=== PATIENT | male | born 1960 | race African-American/Black ===

== ENCOUNTER 2016-11-28 11:18 | Emergency (ER) | payer MEDICAID ==
[~2016-11-28] VITALS: Ht 172.7 cm; Wt 66.0 kg
[~2016-11-28 11:18] MED LIST: OLAN10TA3 PO; TRAZ-132 PO; TRAZODONE; TRIZ; ZYPREXA
[2016-11-28 11:36] VITALS: BP 102/64
== END 2016-11-28 15:17 | disposition left against medical advice (07) ==
LOC: ER 15:05
DX: J34.89 Other specified disorders of nose and nasal sinuses (principal); Z53.21 Procedure and treatment not carried out due to patient leaving prior to being seen by health care provider; J45.909 Unspecified asthma, uncomplicated; F31.9 Bipolar disorder, unspecified; Z90.49 Acquired absence of other specified parts of digestive tract

== ENCOUNTER 2016-12-28 18:59 | Emergency (ER) | payer MEDICAID ==
[~2016-12-28] VITALS: Ht 172.7 cm; Wt 66.0 kg
[2016-12-28 19:32] VITALS: BP 116/69
== END 2016-12-28 20:29 | disposition left against medical advice (07) ==
LOC: ER 18:59
DX: R45.851 Suicidal ideations (principal); Z53.21 Procedure and treatment not carried out due to patient leaving prior to being seen by health care provider

== ENCOUNTER 2017-04-20 06:41 | Emergency (ER) | payer MEDICAID ==
[~2017-04-20] VITALS: Ht 172.7 cm; Wt 73.0 kg
[2017-04-20] MEDS ORDERED: PREDNISONE 20MG TABLET PO STA (06:56)
[2017-04-20] MEDS ORDERED: SODIUM CHLORIDE 0.9% 1,000 ML IV ONE (06:56)
[2017-04-20] MEDS ORDERED: IPRATROPIUM/ALBUTEROL 0.5-3(2.5)MG/3ML NEB HHN ONE (07:00)
[2017-04-20 07:25] LABS: BASOPHILS % 0.8 % (0.0-2.0); EOSINOPHILS % 6.7 % (0.0-5.0); HEMATOCRIT. 36.8 % (42.0-52.0); HEMOGLOBIN. 12.4 g/dL (14.0-18.0); LYMPHOCYTES % 43.3 % (20.0-50.0); MEAN CORPUSCULAR HEMOGLOBIN 34.6 pg (28.0-32.0); MEAN CORPUSCULAR VOLUME 102.7 fL (80.0-94.0); MONOCYTES % 7.6 % (2.0-8.0); NEUTROPHILS % 41.6 % (40.0-76.0); PLATELET 156 x1000/uL (130-400); RED BLOOD CELL COUNT 3.59 mill/uL (4.7-6.1); RED CELL DISTRIBUTION WIDTH 13.2 % (11.6-14.6)
[2017-04-20 07:46] LABS: CARBON DIOXIDE 28 mEq/L (21-32); CHLORIDE 110 mEq/L (98-107)
[2017-04-20 07:47] LABS: TROPONIN I < 0.02 ng/mL (0.00-0.04)
[2017-04-20 08:24] LABS: CLARITY URINE CLEAR (CLEAR); COLOR URINE YELLOW (YELLOW); GLUCOSE URINE NEGATIVE (NEGATIVE); KETONES URINE NEGATIVE (NEGATIVE); LEUKOCYTE ESTERASE URINE NEGATIVE (NEGATIVE); NITRITE URINE NEGATIVE (NEGATIVE); OCCULT BLOOD URINE NEGATIVE (NEGATIVE); PH URINE 5.5 (4.5-8.0); PROTEIN URINE TRACE (NEGATIVE); SPECIFIC GRAVITY URINE 1.027 (1.005-1.030)
[2017-04-20 09:20] VITALS: BP 150/79
== END 2017-04-20 10:07 | disposition home or self-care (01) ==
LOC: ER 07:02
DX: J45.901 Unspecified asthma with (acute) exacerbation (principal); F25.0 Schizoaffective disorder, bipolar type; Z91.14 Patient's other noncompliance with medication regimen; F14.10 Cocaine abuse, uncomplicated; F17.210 Nicotine dependence, cigarettes, uncomplicated; Z90.49 Acquired absence of other specified parts of digestive tract
CPT/HCPCS: 36415; 71010; 80053; 81001; 83880; 84484; 85025; 93005; 94640; 96360; 99285; J7030; J7512; J7620

== ENCOUNTER 2017-09-10 18:55 | Emergency (ER) | payer MEDICAID ==
[~2017-09-10] VITALS: Ht 172.7 cm; Wt 69.0 kg
[2017-09-10] MEDS ORDERED: IPRATROPIUM BROMIDE (0.02%) 0.5MG/2.5ML NEB HHN STA (20:33)
[2017-09-10] MEDS ORDERED: ALBUTEROL (0.083%) 2.5MG/3ML NEB HHN STA (20:33)
[2017-09-10] MEDS ORDERED: PREDNISONE 20MG TABLET PO STA (20:33)
[2017-09-10] MEDS ORDERED: ALBUTEROL (0.5%) 2.5MG/0.5ML NEB HHN ONE (20:57)
[2017-09-10 23:15] VITALS: BP 122/70
== END 2017-09-10 23:16 | disposition home or self-care (01) ==
LOC: ER 20:09
DX: J45.901 Unspecified asthma with (acute) exacerbation (principal); F31.9 Bipolar disorder, unspecified; I10 Essential (primary) hypertension; Z87.891 Personal history of nicotine dependence
CPT/HCPCS: 71045; 94640; 99284; J7512; J7611

== ENCOUNTER 2017-11-14 15:35 | Emergency (ER) | payer MEDICAID ==
[~2017-11-14] VITALS: Ht 172.7 cm; Wt 69.0 kg
[2017-11-14] MEDS ORDERED: KETOROLAC 30MG/ML VIAL IM ONE (18:00)
[2017-11-14 20:04] VITALS: BP 124/72
== END 2017-11-14 20:10 | disposition home or self-care (01) ==
LOC: ER 15:55
DX: K14.0 Glossitis (principal); F20.9 Schizophrenia, unspecified; J45.909 Unspecified asthma, uncomplicated; F31.9 Bipolar disorder, unspecified; F14.10 Cocaine abuse, uncomplicated
CPT/HCPCS: 96372; 99283; J1885

== ENCOUNTER 2017-12-19 14:20 | Emergency (ER) | payer MEDICAID, OTHER ==
[~2017-12-19] VITALS: Ht 172.7 cm; Wt 73.0 kg
[2017-12-19 15:05] VITALS: BP 110/56
[2017-12-19] MEDS ORDERED: IBUPROFEN 600MG TABLET PO ONE (16:15)
== END 2017-12-19 16:39 | disposition home or self-care (01) ==
LOC: ER 16:17
DX: K02.9 Dental caries, unspecified (principal); K12.0 Recurrent oral aphthae; J45.909 Unspecified asthma, uncomplicated; F31.9 Bipolar disorder, unspecified; F17.210 Nicotine dependence, cigarettes, uncomplicated; F14.10 Cocaine abuse, uncomplicated; Z90.49 Acquired absence of other specified parts of digestive tract
CPT/HCPCS: 99283

== ENCOUNTER 2018-06-13 07:52 | Emergency (ER) | payer MEDICAID ==
[~2018-06-13] VITALS: Ht 172.7 cm; Wt 75.0 kg
[~2018-06-13 07:52] MED LIST changes: -TRAZ-132 PO; +TRAZ-213 PO
[2018-06-13] MEDS ORDERED: PREDNISONE 20MG TABLET PO ONE (08:30)
[2018-06-13 10:11] VITALS: BP 133/78
== END 2018-06-13 11:14 | disposition home or self-care (01) ==
LOC: ER 07:52
DX: J45.901 Unspecified asthma with (acute) exacerbation (principal); F31.9 Bipolar disorder, unspecified; F20.9 Schizophrenia, unspecified; F14.10 Cocaine abuse, uncomplicated; Z90.49 Acquired absence of other specified parts of digestive tract
CPT/HCPCS: 99283; J7512

== ENCOUNTER 2018-08-24 07:34 | Inpatient (IN) | payer MEDICAID ==
[~2018-08-24] VITALS: Ht 172.7 cm; Wt 71.2 kg
[2018-08-24] MEDS: IPRATROPIUM/ALBUTEROL 0.5-3(2.5)MG/3ML NEB HHN SCH ×2 (02:00→20:56)
[2018-08-24] MEDS ORDERED: ALBUTEROL (0.083%) 2.5MG/3ML NEB HHN STA ×2 (10:18→11:57)
[2018-08-24] MEDS ORDERED: IPRATROPIUM BROMIDE (0.02%) 0.5MG/2.5ML NEB HHN STA (10:18)
[2018-08-24] MEDS ORDERED: METHYLPREDNISOLONE SOD SUCC 125 MG/2 ML VIAL IV STA (10:18)
[2018-08-24 11:28] LABS: BASOPHILS % 0.4 % (0.0-2.0); EOSINOPHILS % 2.8 % (0.0-5.0); HEMATOCRIT. 38.9 % (42.0-52.0); HEMOGLOBIN. 13.1 g/dL (14.0-18.0); LYMPHOCYTES % 24.9 % (20.0-50.0); MEAN CORPUSCULAR HEMOGLOBIN 35.9 pg (28.0-32.0); MEAN CORPUSCULAR VOLUME 106.4 fL (80.0-94.0); MONOCYTES % 4.7 % (2.0-8.0); NEUTROPHILS % 67.2 % (40.0-76.0); PLATELET 188 x1000/uL (130-400); RED BLOOD CELL COUNT 3.66 mill/uL (4.7-6.1); RED CELL DISTRIBUTION WIDTH 14.8 % (11.6-14.6)
[2018-08-24 11:33] LABS: CHLORIDE 104 mEq/L (98-107)
[2018-08-24] MEDS ORDERED: IPRATROPIUM BROMIDE (0.02%) 0.5MG/2.5ML NEB ONE (12:10)
[2018-08-24] MEDS ORDERED: AZITHROMYCIN 500 MG in DEXT 5% WATER 250 ML IV STA (12:52)
[2018-08-24] MEDS ORDERED: CEFTRIAXONE 1 G PREMIX 50 ML IV ONE (13:00)
[2018-08-24] MEDS ORDERED: SODIUM CHLORIDE 0.9% 1000ML BAG (SEPSIS BOLUS) IV ONE (13:00)
[2018-08-24 13:02] LABS: CLARITY URINE CLEAR (CLEAR); COLOR URINE YELLOW (YELLOW); KETONES URINE NEGATIVE (NEGATIVE); LEUKOCYTE ESTERASE URINE NEGATIVE (NEGATIVE); NITRITE URINE NEGATIVE (NEGATIVE); OCCULT BLOOD URINE NEGATIVE (NEGATIVE); PROTEIN URINE NEGATIVE (NEGATIVE); SPECIFIC GRAVITY URINE 1.001 (1.005-1.030); UROBILINOGEN URINE 0.2 E.U./dL (0.2-1.0)
[2018-08-24] MEDS ORDERED: MAGNESIUM 2 G PREMIX 50 ML IV ONE (13:15)
[2018-08-24] MEDS ORDERED: GUAIFENESIN-DM 200MG-20MG/10ML UDC PO PRN (14:30)
[2018-08-24] MEDS ORDERED: IPRATROPIUM/ALBUTEROL 0.5-3(2.5)MG/3ML NEB HHN PRN (14:30)
[2018-08-24] MEDS ORDERED: ACETAMINOPHEN 325MG TABLET PO PRN (14:30)
[2018-08-24] MEDS ORDERED: ONDANSETRON HCL 4MG/2ML INJ IV PRN (14:30)
[2018-08-24 16:00] VITALS: BP 118/54
[2018-08-24] MEDS ORDERED: LORAZEPAM 2MG/ML CPJ IV PRN (16:00)
[2018-08-24] MEDS: NICOTINE 21MG PATCH TD SCH (16:00)
[2018-08-24 16:10] VITALS: BP 118/54
[2018-08-24] MEDS: THIAMINE HCL 100MG TABLET PO SCH (16:56)
[2018-08-24] MEDS: MULTIVITAMINS,THER W-MINERALS TABLET PO SCH (16:56)
[2018-08-24] MEDS: MONTELUKAST SODIUM 10MG TABLET PO SCH (16:56)
[2018-08-24] MEDS: FOLIC ACID 1MG TABLET PO SCH (16:57)
[2018-08-24] MEDS: CEFTRIAXONE 1 G PREMIX 50 ML IV SCH (18:10)
[2018-08-24] MEDS: AZITHROMYCIN 500 MG in DEXT 5% WATER 250 ML IV SCH (18:10)
[2018-08-24 20:00] VITALS: BP 117/56
[2018-08-24 20:57] LABS: *AMPHETAMINES SCREEN URINE NEGATIVE (NEGATIVE)
[2018-08-24 20:58] LABS: *BARBITURATES SCREEN URINE NEGATIVE (NEGATIVE); *BENZODIAZEPINES SCREEN URINE NEGATIVE (NEGATIVE); *COCAINE SCREEN URINE PRESUMTIVE POSITIVE (NEGATIVE); CANNABINOID URINE SCREEN NEGATIVE (NEGATIVE); METHADONE URINE SCREEN NEGATIVE (NEGATIVE); OPIATES URINE SCREEN NEGATIVE (NEGATIVE); PHENCYCLIDINE URINE SCREEN NEGATIVE (NEGATIVE)
[2018-08-24] MEDS: CHLORDIAZEPOXIDE 5 MG CAPSULE PO SCH (21:01)
[2018-08-24] MEDS: FAMOTIDINE 20MG TABLET PO SCH (21:01)
[2018-08-24] MEDS: SULFAMETHOXAZOLE/TRIMETHOPRIM 800/160MG TABLET PO SCH (21:01)
[2018-08-24] MEDS: METHYLPREDNISOLONE SOD SUCC 40 MG/ML VIAL IV SCH (21:01)
[2018-08-25 00:02] VITALS: BP 98/54
[2018-08-25 04:00] VITALS: BP 109/42
[2018-08-25] MEDS: METHYLPREDNISOLONE SOD SUCC 40 MG/ML VIAL IV SCH ×3 (04:18→17:41)
[2018-08-25] MEDS: CHLORDIAZEPOXIDE 5 MG CAPSULE PO SCH ×3 (05:02→21:13)
[2018-08-25 06:10] LABS: BASOPHILS % 0.1 % (0.0-2.0); HEMATOCRIT. 34.8 % (42.0-52.0); HEMOGLOBIN. 11.8 g/dL (14.0-18.0); LYMPHOCYTES % 9.2 % (20.0-50.0); MEAN CORPUSCULAR HEMOGLOBIN 35.9 pg (28.0-32.0); MEAN CORPUSCULAR VOLUME 106.2 fL (80.0-94.0); MEAN PLATELET VOLUME 8.3 fl (7.4-10.4); MONOCYTES % 1.8 % (2.0-8.0); NEUTROPHILS % 88.9 % (40.0-76.0); PLATELET 185 x1000/uL (130-400); RED BLOOD CELL COUNT 3.28 mill/uL (4.7-6.1); RED CELL DISTRIBUTION WIDTH 14.8 % (11.6-14.6)
[2018-08-25 06:43] LABS: CHLORIDE 107 mEq/L (98-107)
[2018-08-25 08:00] VITALS: BP 102/46
[2018-08-25] MEDS: IPRATROPIUM/ALBUTEROL 0.5-3(2.5)MG/3ML NEB HHN SCH ×5 (08:00→21:23)
[2018-08-25] MEDS: SULFAMETHOXAZOLE/TRIMETHOPRIM 800/160MG TABLET PO SCH ×2 (08:24→21:13)
[2018-08-25] MEDS: MULTIVITAMINS,THER W-MINERALS TABLET PO SCH (08:24)
[2018-08-25] MEDS: THIAMINE HCL 100MG TABLET PO SCH (08:24)
[2018-08-25] MEDS: FAMOTIDINE 20MG TABLET PO SCH ×2 (08:24→21:13)
[2018-08-25] MEDS: FOLIC ACID 1MG TABLET PO SCH (08:25)
[2018-08-25] MEDS: NICOTINE 21MG PATCH TD SCH ×2 (08:25→08:31)
[2018-08-25 12:00] VITALS: BP 120/51
[2018-08-25 16:00] VITALS: BP 108/55
[2018-08-25] MEDS: MONTELUKAST SODIUM 10MG TABLET PO SCH (17:40)
[2018-08-25] MEDS: CEFTRIAXONE 1 G PREMIX 50 ML IV SCH (17:40)
[2018-08-25] MEDS: AZITHROMYCIN 500 MG in DEXT 5% WATER 250 ML IV SCH (17:41)
[2018-08-25 20:00] VITALS: BP 110/60
[2018-08-26] VITALS: BP 126/63
[2018-08-26] MEDS: IPRATROPIUM/ALBUTEROL 0.5-3(2.5)MG/3ML NEB HHN SCH ×2 (03:40)
[2018-08-26] MEDS: METHYLPREDNISOLONE SOD SUCC 40 MG/ML VIAL IV SCH (03:45)
[2018-08-26 04:00] VITALS: BP 116/60
[2018-08-26] MEDS: CHLORDIAZEPOXIDE 5 MG CAPSULE PO SCH (05:38)
[2018-08-26 08:00] VITALS: BP 109/57
[2018-08-26] MEDS: NICOTINE 21MG PATCH TD SCH (09:00)
[2018-08-26 09:06] LABS: ABSOLUTE LYMPHOCYTES 0.8 x10E3/uL (0.7-3.1); ABSOLUTE MONOCYTES 0.1 x10E3/uL (0.1-0.9); ABSOLUTE NEUTROPHILS 6.7 x10E3/uL (1.4-7.0); BASOPHILS 0 % (Not Estab.); HEMATOCRIT 34.9 % (37.5-51.0); HEMOGLOBIN 11.3 g/dL (13.0-17.7); IMMATURE GRANULOCYTES 0 % (Not Estab.); LYMPHOCYTES 10 % (Not Estab.); MEAN CORPUSCULAR HEMOGLOBIN 33.9 pg (26.6-33.0); MEAN CORPUSCULAR HGB CONC. 32.4 g/dL (31.5-35.7); MEAN CORPUSCULAR VOLUME 105 fL (79-97); MONOCYTES 2 % (Not Estab.); NEUTROPHILS 88 % (Not Estab.); PLATELETS 197 x10E3/uL (150-379); RBC 3.33 x10E6/uL (4.14-5.80); RED CELL DISTRIBUTION WIDTH 14.5 % (12.3-15.4); WBC 7.7 x10E3/uL (3.4-10.8)
[2018-08-26] MEDS: FAMOTIDINE 20MG TABLET PO SCH (09:08)
[2018-08-26] MEDS: FOLIC ACID 1MG TABLET PO SCH (09:08)
[2018-08-26] MEDS: THIAMINE HCL 100MG TABLET PO SCH (09:08)
[2018-08-26] MEDS: SULFAMETHOXAZOLE/TRIMETHOPRIM 800/160MG TABLET PO SCH (09:08)
[2018-08-26] MEDS: MULTIVITAMINS,THER W-MINERALS TABLET PO SCH (09:08)
[2018-08-26 10:00] VITALS: BP 109/57
[2018-08-26 10:11] LABS: HEMATOCRIT. 36.7 % (42.0-52.0); MEAN CORPUSCULAR VOLUME 106.9 fL (80.0-94.0); MEAN PLATELET VOLUME 8.4 fl (7.4-10.4); PLATELET 206 x1000/uL (130-400); RED BLOOD CELL COUNT 3.44 mill/uL (4.7-6.1); RED CELL DISTRIBUTION WIDTH 14.7 % (11.6-14.6)
[2018-08-26 10:20] LABS: CHLORIDE 108 mEq/L (98-107)
[2018-08-26 13:09] LABS: % CD 3 POS. LYMPHOCYTES 78.9 % (57.5-86.2); % CD 4 POS. LYMPHOCYTES 16.8 % (30.8-58.5); % CD 8 POS. LYMPH 59.9 % (12.0-35.5); ABSOLUTE CD 3 631 /uL (622-2402); ABSOLUTE CD 4 HELPER 134 /uL (359-1519); ABSOLUTE CD 8 SUPPRESSOR 479 /uL (109-897); CD4/CD8 RATIO 0.28 (0.92-3.72)
[2018-08-26 19:06] LABS: PLATELET ESTIMATE NORMAL
== END 2018-08-26 11:03 | disposition home or self-care (01) | DRG 133 ==
LOC: ER 07:34 → 7WST 13:10 → ENRESERV 13:26
PROVIDERS: ADMIT Internal Medicine; ATTEND Internal Medicine
DX: J96.00 Acute respiratory failure, unspecified whether with hypoxia or hypercapnia (principal); F20.9 Schizophrenia, unspecified; D64.9 Anemia, unspecified; F31.9 Bipolar disorder, unspecified; F14.10 Cocaine abuse, uncomplicated; F10.10 Alcohol abuse, uncomplicated; F17.210 Nicotine dependence, cigarettes, uncomplicated; J45.901 Unspecified asthma with (acute) exacerbation; Z59.0 Homelessness; Z90.49 Acquired absence of other specified parts of digestive tract; Z91.14 Patient's other noncompliance with medication regimen; Z71.6 Tobacco abuse counseling; Z71.51 Drug abuse counseling and surveillance of drug abuser; Z79.899 Other long term (current) drug therapy
CPT/HCPCS: 36415; 71045; 80048; 80305; 83605; 86359; 86360; 87804; 93005; 94640; 94644; 96365; 99285; J0456; J0696; J2920; J2930; J3475; J7030; J7060; J7611; J7620

== ENCOUNTER 2018-12-11 14:12 | Emergency (ER) | payer MEDICAID ==
[~2018-12-11] VITALS: Ht 167.6 cm; Wt 68.0 kg
[2018-12-11] MEDS ORDERED: IPRATROPIUM/ALBUTEROL 0.5-3(2.5)MG/3ML NEB HHN ONE (15:15)
[2018-12-11 15:23] LABS: BASOPHILS % 0.8 % (0.0-2.0); EOSINOPHILS % 2.1 % (0.0-5.0); HEMATOCRIT. 41.4 % (42.0-52.0); HEMOGLOBIN. 13.7 g/dL (14.0-18.0); LYMPHOCYTES % 58.2 % (20.0-50.0); MEAN CORPUSCULAR HEMOGLOBIN 35.5 pg (28.0-32.0); MEAN CORPUSCULAR VOLUME 107.3 fL (80.0-94.0); MEAN PLATELET VOLUME 8.8 fl (7.4-10.4); MONOCYTES % 6.5 % (2.0-8.0); NEUTROPHILS % 32.4 % (40.0-76.0); PLATELET 170 x1000/uL (130-400); RED BLOOD CELL COUNT 3.86 mill/uL (4.7-6.1)
[2018-12-11 15:28] LABS: CHLORIDE 108 mEq/L (98-107)
[2018-12-11 18:07] LABS: CLARITY URINE CLEAR (CLEAR); COLOR URINE DARK YELLOW (YELLOW); KETONES URINE TRACE (NEGATIVE); LEUKOCYTE ESTERASE URINE NEGATIVE (NEGATIVE); NITRITE URINE NEGATIVE (NEGATIVE); OCCULT BLOOD URINE NEGATIVE (NEGATIVE); PH URINE 5.5 (4.5-8.0); PROTEIN URINE 1+ (NEGATIVE); SPECIFIC GRAVITY URINE 1.039 (1.005-1.030)
[2018-12-11 18:22] LABS: *AMPHETAMINES SCREEN URINE NEGATIVE (NEGATIVE); *BARBITURATES SCREEN URINE NEGATIVE (NEGATIVE); *BENZODIAZEPINES SCREEN URINE NEGATIVE (NEGATIVE); *COCAINE SCREEN URINE PRESUMTIVE POSITIVE (NEGATIVE)
[2018-12-11 18:23] LABS: CANNABINOID URINE SCREEN NEGATIVE (NEGATIVE); METHADONE URINE SCREEN NEGATIVE (NEGATIVE); OPIATES URINE SCREEN NEGATIVE (NEGATIVE); PHENCYCLIDINE URINE SCREEN NEGATIVE (NEGATIVE)
[2018-12-11 19:23] VITALS: BP 122/65
[2018-12-15 13:11] LABS: HIV 1 ABS Positive (Negative); HIV 2 ABS Negative (Negative); HIV SCREEN 4G Reactive (Non Reactive); INTERPRETATION HIV-1 Positive (.)
== END 2018-12-11 19:26 | disposition home or self-care (01) ==
LOC: ER 14:12
DX: J45.901 Unspecified asthma with (acute) exacerbation (principal); F14.10 Cocaine abuse, uncomplicated; M94.0 Chondrocostal junction syndrome [Tietze]; M43.9 Deforming dorsopathy, unspecified; D53.9 Nutritional anemia, unspecified; D72.819 Decreased white blood cell count, unspecified; R73.9 Hyperglycemia, unspecified; R80.9 Proteinuria, unspecified; N17.0 Acute kidney failure with tubular necrosis; R82.4 Acetonuria; R82.71 Bacteriuria; E86.0 Dehydration; F17.200 Nicotine dependence, unspecified, uncomplicated; Z79.899 Other long term (current) drug therapy; Z91.14 Patient's other noncompliance with medication regimen; R74.0 Nonspecific elevation of levels of transaminase and lactic acid dehydrogenase [LDH]
CPT/HCPCS: 36415; 71045; 80053; 80305; 81003; 85025; 86701; 86702; 87040; 87086; 87389; 93005; 94640; 99284; J7620

== ENCOUNTER 2019-06-28 15:56 | Inpatient (IN) | payer MEDICAID ==
[~2019-06-28] VITALS: Ht 172.7 cm; Wt 72.7 kg
[2019-06-28] MEDS ORDERED: METHYLPREDNISOLONE SOD SUCC 125 MG/2 ML VIAL IV STA (16:20)
[2019-06-28] MEDS ORDERED: IPRATROPIUM BROMIDE (0.02%) 0.5MG/2.5ML NEB HHN STA (16:20)
[2019-06-28] MEDS ORDERED: ALBUTEROL (0.083%) 2.5MG/3ML NEB HHN STA (16:20)
[2019-06-28 18:39] LABS: BASOPHILS % 0.4 % (0.0-2.0); EOSINOPHILS % 1.4 % (0.0-5.0); HEMATOCRIT. 36.6 % (42.0-52.0); HEMOGLOBIN. 12.5 g/dL (14.0-18.0); LYMPHOCYTES % 8.8 % (20.0-50.0); MEAN CORPUSCULAR HEMOGLOBIN 35.4 pg (28.0-32.0); MEAN CORPUSCULAR VOLUME 103.8 fL (80.0-94.0); MEAN PLATELET VOLUME 7.3 fl (7.4-10.4); MONOCYTES % 2.4 % (2.0-8.0); PLATELET 217 x1000/uL (130-400); RED BLOOD CELL COUNT 3.53 mill/uL (4.7-6.1); RED CELL DISTRIBUTION WIDTH 13.7 % (11.6-14.6)
[2019-06-28 18:43] LABS: CHLORIDE 104 mEq/L (98-107)
[2019-06-28] MEDS ORDERED: CEFTRIAXONE 1 G PREMIX 50 ML IV SCH (23:15)
[2019-06-28] MEDS ORDERED: ACETAMINOPHEN 325MG TABLET PO PRN (23:15)
[2019-06-28] MEDS ORDERED: MAGNESIUM/ALUMINUM HYDROXIDE/SIMETHICONE 30ML UDC PO PRN (23:15)
[2019-06-28] MEDS ORDERED: CLONIDINE 0.1MG TABLET PO PRN (23:15)
[2019-06-28] MEDS ORDERED: HYDROCODONE/ACETAMINOPHEN 5/325MG TABLET PO PRN (23:15)
[2019-06-28] MEDS ORDERED: GUAIFENESIN 200MG/10ML SUGAR FREE UDC PO PRN (23:15)
[2019-06-28] MEDS ORDERED: DOCUSATE SODIUM 100MG CAPSULE PO PRN (23:15)
[2019-06-28] MEDS ORDERED: AZITHROMYCIN 500 MG in DEXT 5% WATER 250 ML IV SCH (23:15)
[2019-06-28] MEDS ORDERED: ONDANSETRON HCL 4MG/2ML INJ IV PRN (23:15)
[2019-06-28] MEDS ORDERED: IPRATROPIUM/ALBUTEROL 0.5-3(2.5)MG/3ML NEB NEB PRN (23:15)
[2019-06-28 23:53] LABS: CHLORIDE 103 mEq/L (98-107)
[2019-06-29] VITALS (8 sets, daily range): BP systolic 91–148; BP diastolic 47–68
[2019-06-29] MEDS ORDERED: ALBU4TAB6 PO (00:07)
[2019-06-29] MEDS ORDERED: ALBU18HF2 IH (00:07)
[2019-06-29] MEDS ORDERED: AZITHROMYCIN 500 MG in DEXT 5% WATER 250 ML IV SCH (01:00)
[2019-06-29] MEDS: METHYLPREDNISOLONE SOD SUCC 40 MG/ML VIAL IV SCH ×2 (01:17→09:29)
[2019-06-29 01:39] LABS: VITAMIN B12 SERUM 510 pg/mL (211-911)
[2019-06-29 01:43] LABS: FOLIC ACID (FOLATE) SERUM > 20.00 ng/mL (>5.38)
[2019-06-29] MEDS ORDERED: CEFTRIAXONE 1 G PREMIX 50 ML IV SCH ×2 (02:00→23:00)
[2019-06-29] MEDS: OMEPRAZOLE 20MG CAPSULE EXTENDED RELEASE PO SCH (06:27)
[2019-06-29 07:16] LABS: LDL CHOLESTEROL 76 mg/dL (5-100)
[2019-06-29 07:17] LABS: HDL CHOLESTEROL 95 mg/dL (40-59)
[2019-06-29 07:19] LABS: HEMATOCRIT. 35.2 % (42.0-52.0); HEMOGLOBIN. 11.8 g/dL (14.0-18.0); LYMPHOCYTES % 10.9 % (20.0-50.0); MEAN CORPUSCULAR HEMOGLOBIN 34.8 pg (28.0-32.0); MONOCYTES % 1.1 % (2.0-8.0); PLATELET 225 x1000/uL (130-400); RED BLOOD CELL COUNT 3.38 mill/uL (4.7-6.1)
[2019-06-29 07:21] LABS: CREATINE KINASE MB FRACTION 13.1 ng/mL (0.5-3.6)
[2019-06-29 07:28] LABS: CREATINE KINASE 1139 IU/L (39-308)
[2019-06-29] MEDS: IPRATROPIUM/ALBUTEROL 0.5-3(2.5)MG/3ML NEB NEB SCH ×4 (08:47→20:48)
[2019-06-29] MEDS ORDERED: ABACAVIR/LAMIVUDINE/ZIDOVUDINE 300/150/300MG TABLET PO SCH (09:00)
[2019-06-29] MEDS: ENOXAPARIN 40MG/0.4ML SYR SUBCUT SCH (09:29)
[2019-06-29] MEDS: SULFAMETHOXAZOLE/TRIMETHOPRIM 800/160MG TABLET PO SCH (09:29)
[2019-06-29] MEDS: OLANZAPINE 10MG TABLET PO SCH (09:30)
[2019-06-29] MEDS: RALTEGRAVIR 400MG TABLET PO SCH ×2 (09:31→17:49)
[2019-06-29] MEDS: EMTRICITABINE 200MG CAPSULE PO SCH (09:31)
[2019-06-29] MEDS: TENOFOVIR 300MG TABLET PO SCH (09:31)
[2019-06-29] MEDS ORDERED: EMTRICITABINE 200MG CAPSULE PO SCH (10:00)
[2019-06-29] MEDS ORDERED: TENOFOVIR 300MG TABLET PO SCH (10:00)
[2019-06-29] MEDS: NICOTINE 7MG PATCH TD SCH (14:45)
[2019-06-29] MEDS: CHLORDIAZEPOXIDE 5 MG CAPSULE PO SCH ×2 (15:00→20:25)
[2019-06-29] MEDS ORDERED: CHLORDIAZEPOXIDE 25MG CAPSULE PO SCH (15:00)
[2019-06-29] MEDS: THIAMINE HCL 100MG TABLET PO SCH (15:59)
[2019-06-29] MEDS: FOLIC ACID 1MG TABLET PO SCH (15:59)
[2019-06-29] MEDS: MULTIVITAMINS,THER W-MINERALS TABLET PO SCH (15:59)
[2019-06-29] MEDS: PREDNISONE 20MG TABLET PO SCH (17:48)
[2019-06-29] MEDS ORDERED: SODIUM CHLORIDE 0.9% 1,000 ML IV SCH (18:30)
[2019-06-29] MEDS: SODIUM CHLORIDE 0.9% 1,000 ML IV SCH (20:00)
[2019-06-29] MEDS: TRAZODONE HCL 50MG TABLET PO SCH (20:30)
[2019-06-29] MEDS: FOLIC ACID 1 MG, THIAMINE HCL 100 MG, MVI, ADULT NO.1 10 ML in DEXTROSE 5% WATER 1,000 ML IV NR ×4 (20:31)
[2019-06-29 22:27] LABS: CREATINE KINASE 753 IU/L (39-308)
[2019-06-29 22:29] LABS: CREATINE KINASE MB FRACTION 8.7 ng/mL (0.5-3.6)
[2019-06-30] VITALS: BP 116/63
[2019-06-30 04:00] VITALS: BP 108/64
[2019-06-30] MEDS: IPRATROPIUM/ALBUTEROL 0.5-3(2.5)MG/3ML NEB NEB SCH ×6 (04:00→20:57)
[2019-06-30] MEDS: FOLIC ACID 1 MG, THIAMINE HCL 100 MG, MVI, ADULT NO.1 10 ML in DEXTROSE 5% WATER 1,000 ML IV NR ×4 (04:43)
[2019-06-30] MEDS: CHLORDIAZEPOXIDE 5 MG CAPSULE PO SCH ×3 (05:08→21:21)
[2019-06-30] MEDS: SODIUM CHLORIDE 0.9% 1,000 ML IV SCH ×2 (05:42→16:00)
[2019-06-30] MEDS: OMEPRAZOLE 20MG CAPSULE EXTENDED RELEASE PO SCH (06:11)
[2019-06-30 08:00] VITALS: BP 117/54
[2019-06-30] MEDS: NICOTINE 7MG PATCH TD SCH (09:00)
[2019-06-30] MEDS: ENOXAPARIN 40MG/0.4ML SYR SUBCUT SCH (09:05)
[2019-06-30] MEDS: PREDNISONE 20MG TABLET PO SCH ×2 (09:05→17:40)
[2019-06-30] MEDS: FOLIC ACID 1MG TABLET PO SCH (09:05)
[2019-06-30] MEDS: OLANZAPINE 10MG TABLET PO SCH (09:05)
[2019-06-30 09:06] LABS: % CD 3 POS. LYMPHOCYTES 72.2 % (57.5-86.2); % CD 4 POS. LYMPHOCYTES 14.8 % (30.8-58.5); ABSOLUTE CD 3 505 /uL (622-2402); ABSOLUTE CD 4 HELPER 104 /uL (359-1519); ABSOLUTE CD 8 SUPPRESSOR 378 /uL (109-897); ABSOLUTE LYMPHOCYTES 0.7 x10E3/uL (0.7-3.1); ABSOLUTE MONOCYTES 0.2 x10E3/uL (0.1-0.9); ABSOLUTE NEUTROPHILS 8.2 x10E3/uL (1.4-7.0); BASOPHILS 0 % (Not Estab.); CD4/CD8 RATIO 0.27 (0.92-3.72); HEMATOCRIT 33.5 % (37.5-51.0); HEMOGLOBIN 11.7 g/dL (13.0-17.7); IMMATURE GRANULOCYTES 0 % (Not Estab.); LYMPHOCYTES 8 % (Not Estab.); MEAN CORPUSCULAR HEMOGLOBIN 34.4 pg (26.6-33.0); MEAN CORPUSCULAR HGB CONC. 34.9 g/dL (31.5-35.7); MEAN CORPUSCULAR VOLUME 99 fL (79-97); MONOCYTES 2 % (Not Estab.); NEUTROPHILS 90 % (Not Estab.); PLATELETS 256 x10E3/uL (150-450); RED CELL DISTRIBUTION WIDTH 13.3 % (12.3-15.4); WBC 9.2 x10E3/uL (3.4-10.8)
[2019-06-30] MEDS: RALTEGRAVIR 400MG TABLET PO SCH ×2 (09:06→17:40)
[2019-06-30] MEDS: SULFAMETHOXAZOLE/TRIMETHOPRIM 800/160MG TABLET PO SCH (09:06)
[2019-06-30] MEDS: THIAMINE HCL 100MG TABLET PO SCH (09:06)
[2019-06-30] MEDS: EMTRICITABINE 200MG CAPSULE PO SCH (09:07)
[2019-06-30] MEDS: TENOFOVIR 300MG TABLET PO SCH (09:08)
[2019-06-30 09:34] LABS: CREATINE KINASE 392 IU/L (39-308)
[2019-06-30 12:00] VITALS: BP 106/50
[2019-06-30] MEDS: MULTIVITAMINS,THER W-MINERALS TABLET PO SCH (12:11)
[2019-06-30 15:53] VITALS: BP 122/62
[2019-06-30] MEDS ORDERED: FOLI-43 PO (18:37)
[2019-06-30] MEDS ORDERED: OMEP20CA5 PO (18:37)
[2019-06-30] MEDS ORDERED: P20 PO (18:37)
[2019-06-30] MEDS ORDERED: CHLO5CAP3 PO (18:37)
[2019-06-30] MEDS ORDERED: THIA100T72 PO (18:37)
[2019-06-30] MEDS ORDERED: NICO-786 TD (18:37)
[2019-06-30] MEDS ORDERED: SULF1TAB44 PO (18:37)
[2019-06-30 20:00] VITALS: BP 109/63
[2019-06-30 21:07] LABS: *AMPHETAMINES SCREEN URINE NEGATIVE (NEGATIVE); *BARBITURATES SCREEN URINE NEGATIVE (NEGATIVE)
[2019-06-30 21:08] LABS: *BENZODIAZEPINES SCREEN URINE NEGATIVE (NEGATIVE); *COCAINE SCREEN URINE PRESUMTIVE POSITIVE (NEGATIVE); CANNABINOID URINE SCREEN NEGATIVE (NEGATIVE); METHADONE URINE SCREEN NEGATIVE (NEGATIVE); OPIATES URINE SCREEN NEGATIVE (NEGATIVE); PHENCYCLIDINE URINE SCREEN NEGATIVE (NEGATIVE)
[2019-06-30] MEDS: TRAZODONE HCL 50MG TABLET PO SCH (21:21)
[2019-07-01] VITALS: BP 117/69
[2019-07-01] MEDS: IPRATROPIUM/ALBUTEROL 0.5-3(2.5)MG/3ML NEB NEB SCH ×4 (00:43→14:09)
[2019-07-01] MEDS: SODIUM CHLORIDE 0.9% 1,000 ML IV SCH ×2 (03:20→12:46)
[2019-07-01 03:35] VITALS: BP 126/65
[2019-07-01 04:00] VITALS: BP 122/69
[2019-07-01] MEDS: CHLORDIAZEPOXIDE 5 MG CAPSULE PO SCH ×2 (05:50→12:38)
[2019-07-01] MEDS: PREDNISONE 20MG TABLET PO SCH ×2 (06:12→18:18)
[2019-07-01] MEDS: OMEPRAZOLE 20MG CAPSULE EXTENDED RELEASE PO SCH (06:12)
[2019-07-01 08:00] VITALS: BP 119/68
[2019-07-01] MEDS: NICOTINE 7MG PATCH TD SCH (09:00)
[2019-07-01] MEDS: MULTIVITAMINS,THER W-MINERALS TABLET PO SCH (10:10)
[2019-07-01] MEDS: ENOXAPARIN 40MG/0.4ML SYR SUBCUT SCH (10:10)
[2019-07-01] MEDS: FOLIC ACID 1MG TABLET PO SCH (10:11)
[2019-07-01] MEDS: OLANZAPINE 10MG TABLET PO SCH (10:11)
[2019-07-01] MEDS: THIAMINE HCL 100MG TABLET PO SCH (10:11)
[2019-07-01] MEDS: SULFAMETHOXAZOLE/TRIMETHOPRIM 800/160MG TABLET PO SCH (10:11)
[2019-07-01 12:00] VITALS: BP 126/65
[2019-07-01 16:00] VITALS: BP 122/62
== END 2019-07-01 19:35 | DRG 140 ==
LOC: ER 16:00 → 8WST 19:36 → ENRESERV 21:28
PROVIDERS: ADMIT Internal Medicine; ATTEND Internal Medicine
DX: J44.1 Chronic obstructive pulmonary disease with (acute) exacerbation (principal); J96.00 Acute respiratory failure, unspecified whether with hypoxia or hypercapnia; B20 Human immunodeficiency virus [HIV] disease; R45.851 Suicidal ideations; J45.901 Unspecified asthma with (acute) exacerbation; F20.9 Schizophrenia, unspecified; D53.9 Nutritional anemia, unspecified; F31.9 Bipolar disorder, unspecified; G47.00 Insomnia, unspecified; Z59.0 Homelessness; Z72.0 Tobacco use; Z72.89 Other problems related to lifestyle
CPT/HCPCS: 36415; 71045; 80048; 80061; 80305; 82550; 82553; 82607; 82746; 83735; 83880; 84443; 84484; 86359; 86360; 93005; 93970; 94640; 99285; J0456; J0696; J1650; J2920; J2930; J3411; J3490; J7030; J7040; J7060; J7070; J7512; J7611; J7620

== ENCOUNTER 2019-08-04 02:57 | Inpatient (IN) | payer MEDICAID ==
[~2019-08-04] VITALS: Ht 172.7 cm; Wt 67.6 kg
[~2019-08-04 02:57] MED LIST changes: +ALBU18HF2 IH; +CHLO5CAP3 PO; +FOLI-43 PO; +NICO-786 TD; +OMEP20CA5 PO; +P20 PO; +SULF1TAB44 PO; +THIA100T72 PO; -TRAZODONE; -TRIZ; -ZYPREXA
[2019-08-04] MEDS ORDERED: METHYLPREDNISOLONE SOD SUCC 125 MG/2 ML VIAL IV STA (04:28)
[2019-08-04] MEDS ORDERED: IPRATROPIUM BROMIDE (0.02%) 0.5MG/2.5ML NEB HHN STA (04:28)
[2019-08-04] MEDS ORDERED: MAGNESIUM 2 G PREMIX 50 ML IV STA (04:28)
[2019-08-04] MEDS ORDERED: ALBUTEROL (0.083%) 2.5MG/3ML NEB HHN STA (04:28)
[2019-08-04 04:56] LABS: BASOPHILS % 0.7 % (0.0-2.0); EOSINOPHILS % 7.2 % (0.0-5.0); HEMATOCRIT. 40.4 % (42.0-52.0); HEMOGLOBIN. 13.7 g/dL (14.0-18.0); LYMPHOCYTES % 33.5 % (20.0-50.0); MEAN CORPUSCULAR HEMOGLOBIN 34.8 pg (28.0-32.0); MEAN CORPUSCULAR VOLUME 102.8 fL (80.0-94.0); MEAN PLATELET VOLUME 7.7 fl (7.4-10.4); MONOCYTES % 6.8 % (2.0-8.0); NEUTROPHILS % 51.8 % (40.0-76.0); PLATELET 215 x1000/uL (130-400); RED BLOOD CELL COUNT 3.93 mill/uL (4.7-6.1); RED CELL DISTRIBUTION WIDTH 13.3 % (11.6-14.6)
[2019-08-04 05:05] LABS: CHLORIDE 108 mEq/L (98-107)
[2019-08-04] MEDS ORDERED: ONDANSETRON HCL 4MG/2ML INJ IV PRN (08:30)
[2019-08-04] MEDS ORDERED: ACETAMINOPHEN 325MG TABLET PO PRN (08:30)
[2019-08-04] MEDS ORDERED: IPRATROPIUM/ALBUTEROL 0.5-3(2.5)MG/3ML NEB HHN PRN (08:30)
[2019-08-04] MEDS: METHYLPREDNISOLONE SOD SUCC 40 MG/ML VIAL IV SCH ×2 (14:19→22:07)
[2019-08-04 18:27] VITALS: BP 131/79
[2019-08-04 20:00] VITALS: BP 134/76
[2019-08-04] MEDS: IPRATROPIUM/ALBUTEROL 0.5-3(2.5)MG/3ML NEB HHN SCH (21:16)
[2019-08-04 21:33] LABS: CLARITY URINE CLEAR (CLEAR); COLOR URINE YELLOW (YELLOW); KETONES URINE TRACE (NEGATIVE); LEUKOCYTE ESTERASE URINE NEGATIVE (NEGATIVE); NITRITE URINE NEGATIVE (NEGATIVE); OCCULT BLOOD URINE NEGATIVE (NEGATIVE); PROTEIN URINE TRACE (NEGATIVE); SPECIFIC GRAVITY URINE 1.032 (1.005-1.030); UROBILINOGEN URINE 0.2 E.U./dL (0.2-1.0)
[2019-08-04 21:43] LABS: *AMPHETAMINES SCREEN URINE NEGATIVE (NEGATIVE); *BARBITURATES SCREEN URINE NEGATIVE (NEGATIVE); *BENZODIAZEPINES SCREEN URINE NEGATIVE (NEGATIVE); *COCAINE SCREEN URINE PRESUMTIVE POSITIVE (NEGATIVE); METHADONE URINE SCREEN NEGATIVE (NEGATIVE)
[2019-08-04 21:44] LABS: CANNABINOID URINE SCREEN NEGATIVE (NEGATIVE); OPIATES URINE SCREEN NEGATIVE (NEGATIVE); PHENCYCLIDINE URINE SCREEN NEGATIVE (NEGATIVE)
[2019-08-05] VITALS: BP 115/43
[2019-08-05 04:00] VITALS: BP 111/55
[2019-08-05] MEDS: METHYLPREDNISOLONE SOD SUCC 40 MG/ML VIAL IV SCH (06:35)
[2019-08-05 08:00] VITALS: BP 115/52
[2019-08-05] MEDS: IPRATROPIUM/ALBUTEROL 0.5-3(2.5)MG/3ML NEB HHN SCH ×3 (08:21→12:16)
[2019-08-05] MEDS ORDERED: ENOXAPARIN 40MG/0.4ML SYR SUBCUT SCH (09:00)
[2019-08-05] MEDS ORDERED: FLUT1DIS3 INH (10:53)
[2019-08-05] MEDS ORDERED: OLAN10TA3 PO (10:53)
[2019-08-05] MEDS ORDERED: TRAZ-213 PO (10:53)
[2019-08-05] MEDS ORDERED: P20 MT (10:53)
[2019-08-05] MEDS ORDERED: ALBU18HF2 IH (10:53)
[2019-08-05] MEDS ORDERED: SULF1TAB48 MT (10:53)
[2019-08-05] MEDS ORDERED: SULFAMETHOXAZOLE/TRIMETHOPRIM 800/160MG TABLET PO SCH (11:00)
[2019-08-05 13:14] VITALS: BP 108/54
== END 2019-08-05 14:20 | disposition home or self-care (01) | DRG 140 ==
LOC: ER 03:29 → 5WST 07:14 → EDBEDREQ 07:26 → ENRESERV 17:33
PROVIDERS: ADMIT Internal Medicine; ATTEND Internal Medicine
DX: J44.1 Chronic obstructive pulmonary disease with (acute) exacerbation (principal); E87.8 Other disorders of electrolyte and fluid balance, not elsewhere classified; B20 Human immunodeficiency virus [HIV] disease; J68.0 Bronchitis and pneumonitis due to chemicals, gases, fumes and vapors; J45.901 Unspecified asthma with (acute) exacerbation; F14.90 Cocaine use, unspecified, uncomplicated; Z87.891 Personal history of nicotine dependence
CPT/HCPCS: 36415; 71045; 80048; 80305; 81003; 84484; 85025; 93005; 94640; 96365; 99285; J1650; J2920; J2930; J3475; J7611; J7620

== ENCOUNTER 2019-08-08 13:22 | Inpatient (IN) | payer MEDICAID ==
[~2019-08-08] VITALS: Ht 172.7 cm; Wt 65.8 kg
[~2019-08-08 13:22] MED LIST changes: -CHLO5CAP3 PO; +FLUT1DIS3 INH; +P20 MT; -P20 PO; +SULF1TAB48 MT
[2019-08-08 14:22] LABS: BASOPHILS % 0.2 % (0.0-2.0); EOSINOPHILS % 0.8 % (0.0-5.0); HEMATOCRIT. 45.6 % (42.0-52.0); HEMOGLOBIN. 15.3 g/dL (14.0-18.0); LYMPHOCYTES % 45.2 % (20.0-50.0); MEAN CORPUSCULAR HEMOGLOBIN 34.3 pg (28.0-32.0); MEAN CORPUSCULAR VOLUME 102.2 fL (80.0-94.0); MEAN PLATELET VOLUME 7.5 fl (7.4-10.4); MONOCYTES % 7.5 % (2.0-8.0); NEUTROPHILS % 46.3 % (40.0-76.0); PLATELET 237 x1000/uL (130-400); RED BLOOD CELL COUNT 4.46 mill/uL (4.7-6.1); RED CELL DISTRIBUTION WIDTH 13.6 % (11.6-14.6)
[2019-08-08 14:25] LABS: CHLORIDE 106 mEq/L (98-107); INR 1.1; PROTHROMBIN TIME 11.4 sec (9.6-11.0)
[2019-08-08 14:29] LABS: ETHANOL BLOOD < 10 mg/dL
[2019-08-08 14:31] LABS: LDL CHOLESTEROL 90 mg/dL (5-100)
[2019-08-08] MEDS ORDERED: IOHEXOL-350 100 ML BOTTLE ONE (14:43)
[2019-08-08 15:50] LABS: CLARITY URINE CLEAR (CLEAR); COLOR URINE YELLOW (YELLOW); KETONES URINE NEGATIVE (NEGATIVE); LEUKOCYTE ESTERASE URINE NEGATIVE (NEGATIVE); NITRITE URINE NEGATIVE (NEGATIVE); OCCULT BLOOD URINE NEGATIVE (NEGATIVE); PROTEIN URINE NEGATIVE (NEGATIVE); SPECIFIC GRAVITY URINE 1.081 (1.005-1.030)
[2019-08-08 16:05] LABS: *AMPHETAMINES SCREEN URINE NEGATIVE (NEGATIVE); *BARBITURATES SCREEN URINE NEGATIVE (NEGATIVE); *BENZODIAZEPINES SCREEN URINE NEGATIVE (NEGATIVE)
[2019-08-08 16:06] LABS: *COCAINE SCREEN URINE PRESUMTIVE POSITIVE (NEGATIVE); CANNABINOID URINE SCREEN NEGATIVE (NEGATIVE); METHADONE URINE SCREEN NEGATIVE (NEGATIVE); OPIATES URINE SCREEN NEGATIVE (NEGATIVE); PHENCYCLIDINE URINE SCREEN NEGATIVE (NEGATIVE)
[2019-08-08] MEDS ORDERED: IPRATROPIUM/ALBUTEROL 0.5-3(2.5)MG/3ML NEB HHN PRN (18:45)
[2019-08-08] MEDS ORDERED: ACETAMINOPHEN 325MG TABLET PO PRN (18:45)
[2019-08-08] MEDS ORDERED: ONDANSETRON HCL 4MG/2ML INJ IV PRN (18:45)
[2019-08-08] MEDS: CLOPIDOGREL 75MG TABLET PO SCH (21:22)
[2019-08-08 23:02] VITALS: BP 129/80
[2019-08-08] MEDS: ENOXAPARIN 40MG/0.4ML SYR SUBCUT SCH (23:15)
[2019-08-08] MEDS: ATORVASTATIN CALCIUM 40MG TABLET PO SCH (23:15)
[2019-08-09] VITALS: BP 129/80
[2019-08-09 08:00] VITALS: BP 92/53
[2019-08-09] MEDS: SULFAMETHOXAZOLE/TRIMETHOPRIM 800/160MG TABLET PO SCH (08:59)
[2019-08-09] MEDS: CLOPIDOGREL 75MG TABLET PO SCH (08:59)
[2019-08-09 10:55] LABS: BASOPHILS % 0.6 % (0.0-2.0); EOSINOPHILS % 3.6 % (0.0-5.0); HEMATOCRIT. 42.1 % (42.0-52.0); HEMOGLOBIN. 14.2 g/dL (14.0-18.0); LYMPHOCYTES % 55.6 % (20.0-50.0); MEAN CORPUSCULAR HEMOGLOBIN 34.6 pg (28.0-32.0); MEAN CORPUSCULAR VOLUME 102.5 fL (80.0-94.0); MONOCYTES % 5.3 % (2.0-8.0); NEUTROPHILS % 34.9 % (40.0-76.0); PLATELET 230 x1000/uL (130-400); RED CELL DISTRIBUTION WIDTH 13.8 % (11.6-14.6)
[2019-08-09 11:01] LABS: CHLORIDE 108 mEq/L (98-107)
[2019-08-09 12:00] VITALS: BP 102/56
[2019-08-09] MEDS ORDERED: RALT400T PO (14:54)
[2019-08-09 16:00] VITALS: BP 101/58
[2019-08-09] MEDS: RALTEGRAVIR 400MG TABLET PO SCH (16:53)
[2019-08-09] MEDS: TRUVADA PO SCH (16:54)
[2019-08-09 20:00] VITALS: BP 119/70
[2019-08-09] MEDS: ATORVASTATIN CALCIUM 40MG TABLET PO SCH (21:38)
[2019-08-09] MEDS: ENOXAPARIN 40MG/0.4ML SYR SUBCUT SCH (21:38)
[2019-08-09] MEDS: BUDESONIDE 0.5MG/2ML NEB HHN SCH (23:00)
[2019-08-10] VITALS: BP 107/59
[2019-08-10 04:00] VITALS: BP 95/58
[2019-08-10 08:00] VITALS: BP 106/55
[2019-08-10] MEDS: TRUVADA PO SCH (09:35)
[2019-08-10] MEDS: SULFAMETHOXAZOLE/TRIMETHOPRIM 800/160MG TABLET PO SCH (09:35)
[2019-08-10] MEDS: RALTEGRAVIR 400MG TABLET PO SCH ×2 (09:35→17:28)
[2019-08-10] MEDS: CLOPIDOGREL 75MG TABLET PO SCH (09:35)
[2019-08-10 12:00] VITALS: BP_SYST 106; BP_SYST 117; BP_DIAS 55; BP_DIAS 70
[2019-08-10 16:00] VITALS: BP 106/62
[2019-08-10 20:00] VITALS: BP 108/70
[2019-08-10] MEDS: ENOXAPARIN 40MG/0.4ML SYR SUBCUT SCH (22:09)
[2019-08-10] MEDS: ATORVASTATIN CALCIUM 40MG TABLET PO SCH (22:09)
[2019-08-11] VITALS: BP 109/66
[2019-08-11 04:00] VITALS: BP 108/66
[2019-08-11 07:31] LABS: HEMATOCRIT. 41.9 % (42.0-52.0); HEMOGLOBIN. 14.2 g/dL (14.0-18.0); MEAN CORPUSCULAR HEMOGLOBIN 34.4 pg (28.0-32.0); MEAN CORPUSCULAR VOLUME 101.6 fL (80.0-94.0); MEAN PLATELET VOLUME 7.6 fl (7.4-10.4); PLATELET 239 x1000/uL (130-400); RED BLOOD CELL COUNT 4.12 mill/uL (4.7-6.1); RED CELL DISTRIBUTION WIDTH 13.8 % (11.6-14.6)
[2019-08-11 07:59] LABS: CHLORIDE 105 mEq/L (98-107)
[2019-08-11 08:00] VITALS: BP 95/55
[2019-08-11] MEDS: CLOPIDOGREL 75MG TABLET PO SCH (09:12)
[2019-08-11] MEDS: SULFAMETHOXAZOLE/TRIMETHOPRIM 800/160MG TABLET PO SCH (09:12)
[2019-08-11] MEDS: RALTEGRAVIR 400MG TABLET PO SCH ×2 (09:12→18:00)
[2019-08-11] MEDS: TRUVADA PO SCH (09:12)
[2019-08-11 12:00] VITALS: BP 101/56
[2019-08-11 13:25] LABS: PLATELET ESTIMATE NORMAL
[2019-08-11 16:00] VITALS: BP 107/61
[2019-08-11 20:00] VITALS: BP 105/65
[2019-08-11] MEDS: ENOXAPARIN 40MG/0.4ML SYR SUBCUT SCH (21:28)
[2019-08-11] MEDS: ATORVASTATIN CALCIUM 40MG TABLET PO SCH (21:30)
[2019-08-11] MEDS: BUDESONIDE 0.5MG/2ML NEB HHN SCH ×3 (23:00→23:39)
[2019-08-12] VITALS: BP 101/66
[2019-08-12 04:00] VITALS: BP 112/71
[2019-08-12 08:00] VITALS: BP 94/41
[2019-08-12] MEDS: BUDESONIDE 0.5MG/2ML NEB HHN SCH (08:15)
[2019-08-12] MEDS: SULFAMETHOXAZOLE/TRIMETHOPRIM 800/160MG TABLET PO SCH (09:06)
[2019-08-12] MEDS: RALTEGRAVIR 400MG TABLET PO SCH (09:06)
[2019-08-12] MEDS: CLOPIDOGREL 75MG TABLET PO SCH (09:06)
[2019-08-12] MEDS: TRUVADA PO SCH (09:06)
[2019-08-12 09:32] LABS: EOSINOPHILS % 7.5 % (0.0-5.0); HEMATOCRIT. 43.5 % (42.0-52.0); HEMOGLOBIN. 14.9 g/dL (14.0-18.0); LYMPHOCYTES % 57.5 % (20.0-50.0); MEAN CORPUSCULAR HEMOGLOBIN 34.7 pg (28.0-32.0); MEAN CORPUSCULAR VOLUME 101.4 fL (80.0-94.0); MEAN PLATELET VOLUME 7.8 fl (7.4-10.4); MONOCYTES % 8.3 % (2.0-8.0); NEUTROPHILS % 25.7 % (40.0-76.0); PLATELET 233 x1000/uL (130-400); RED BLOOD CELL COUNT 4.29 mill/uL (4.7-6.1); RED CELL DISTRIBUTION WIDTH 13.4 % (11.6-14.6)
[2019-08-12 10:12] LABS: CHLORIDE 105 mEq/L (98-107)
[2019-08-12 10:19] LABS: LDL CHOLESTEROL 75 mg/dL (5-100)
[2019-08-12 10:21] LABS: HDL CHOLESTEROL 73 mg/dL (40-59)
[2019-08-12 12:00] VITALS: BP 94/38
[2019-08-12 16:14] VITALS: BP 101/48
[2019-08-12 16:50] VITALS: BP 101/48
== END 2019-08-12 18:18 | disposition home or self-care (01) | DRG 45 ==
LOC: ER 14:28 → 7WST 15:11 → ENRESERV 21:04 → 7WST 23:30
PROVIDERS: ADMIT Internal Medicine; ATTEND Internal Medicine
DX: I63.9 Cerebral infarction, unspecified (principal); F20.9 Schizophrenia, unspecified; F14.90 Cocaine use, unspecified, uncomplicated; J44.9 Chronic obstructive pulmonary disease, unspecified; Z60.2 Problems related to living alone; F17.210 Nicotine dependence, cigarettes, uncomplicated; G81.91 Hemiplegia, unspecified affecting right dominant side; Z59.0 Homelessness; Z79.899 Other long term (current) drug therapy; Z71.51 Drug abuse counseling and surveillance of drug abuser
CPT/HCPCS: 36415; 70496; 70551; 71045; 80048; 80053; 80061; 80305; 80320; 81003; 82962; 83721; 84484; 85025; 93005; 93306; 93880; 96372; 97162; 97165; 99285; J1650; J7620; J7626; Q9967; G0480